=== PATIENT | male | born 1995 | race Caucasian/White ===

== ENCOUNTER 2019-09-03 12:07 | Inpatient (IN) ==
[2019-09-03 13:19] LABS: Basophils # (auto) 0.02 K/uL (0-0.2); Basophils % (auto) 0.4 %; Eosinophils # (auto) 0.14 K/uL (0-0.5); Eosinophils % (auto) 2.6 %; Hematocrit (blood only) 45.6 % (42-52); Hemoglobin 16.1 g/dL (14.0-18.0); Immature Granulocytes # (auto) 0.01 K/uL (0.00-0.02); Immature Granulocytes % (auto) 0.2 %; Lymphocytes # (auto) 1.51 K/uL (1.2-3.4); Lymphocytes % (auto) 27.9 %; Mean Corpuscular Hemoglobin 30.3 pg (25-34); Mean Corpuscular Hgb Conc 35.3 g/dL (32-36); Mean Corpuscular Volume 85.9 fL (80-100); Monocytes # (auto) 0.47 K/uL (0.11-0.59); Monocytes % (auto) 8.7 %; Neutrophils # (auto) 3.26 K/uL (1.4-6.5); Neutrophils % (auto) 60.2 %; Platelet Count 235 K/uL (130-400); RDW Coefficient of Variation 12.6 % (11.5-14.5); RDW Standard Deviation 39.9 fL (36.4-46.3); Red Blood Count 5.31 M/uL (4.7-6.1); White Blood Count 5.41 K/uL (4.8-10.8)
[2019-09-03 13:36] LABS: Albumin Level 4.4 gm/dl (3.4-5.0); BUN Creatinine Ratio 16.1 (10-20); Calcium 9.5 mg/dl (8.5-10.1); Creatinine Clr Calc Pharmacy 125.9 ml/min; Est GFR (African American) 117.6; Est GFR (Non-African American) 101.4; Potassium 3.8 mmol/L (3.5-5.1)
[2019-09-03 13:46] LABS: Acetaminophen < 2 ug/ml (10-30)
[2019-09-03 13:47] LABS: Albumin Globulin Ratio 1.3 (0.9-2); Bilirubin,Total 1.4 mg/dl (0.2-1); Globulin 3.5 gm/dl (2.5-4.0); Salicylate < 1.7 mg/dl (2.8-20); Thyroid Stimulating Hormone 2.22 uIu/ml (0.300-4.500); Total Protein 7.9 gm/dl (6.4-8.2)
[2019-09-03 15:05] LABS: Appearance Urine Clear (Clear); Bilirubin Urine Negative (Negative); Blood Urine Negative (Negative); Color Urine Yellow; Glucose Urine UA Negative (Negative); Ketones Urine Negative (Negative); Leukocyte Esterase Urine Negative (Negative); Nitrite Urine Negative (Negative); Protein Urine Negative (Negative); Specific Gravity Urine 1.014 (1.000-1.030); Urobilinogen Urine Negative (Negative); pH Urine 8.5 (4.5-7.5)
[2019-09-03 15:55] LABS: Amphetamines+Metham, Urine Neg (Neg); Barbiturates, Urine Neg (Neg); Benzodiazepine, Urine Neg (Neg); Cocaine, Urine Neg (Neg); MDMA (Ecstacy), Urine Neg (Neg); Methadone, Urine Neg (Neg); Opiate, Urine Neg (Neg); Phencyclidine, Urine Neg (Neg)
--- NOTE | 2019-09-03 17:20 | Emergency Department Note ---
Entered by Sheri Gan acting as a scribe for Kin Cobb MD History of Present Illness General Chief complaint: Mental Health Evaluation Stated complaint: MENTAL HEALTH EVAL Time Seen by Provider: 09/03/19 12:34 Source: patient History of Present Illness Provider complaint: mental health evaluation Onset (ago): hour(s) (PLEATER ) Location: head Severity: similar to prior episodes Maximum Pain Intensity: 0 Relieved By: + none Exacerbated By: + none Associated symptoms: no shortness of breath The patient is a 24 year old male w/ PMHx depressive disorder who presents to the ED w/ CC of mental health evaluation beginning prior to arrival. The patient reports that he has been having suicidal thoughts for the past 6 months. He states that nothing started them. The patient reports that he went to his bathroom today with his propane grill and shut the door. He notes that he called EMS himself. He notes that he has a history of depressive disorder and sees a therapist locally and at home. He notes that he takes his medications regularly. He denies any issues sleeping or with his appetite. He denies any recent tobacco or alcohol use. The patient reports that he smokes marijuana and last smoke on Sunday. He denies any shortness of breath. The patient reports that he changed his medication today. Home Medications Home Medications Medication Instructions Recorded Confirmed Type Adderall XR 20 mg PO QAM 09/03/19 09/03/19 History Prozac 60 mg PO DAILY 09/03/19 09/03/19 History Ritalin LA 20 mg PO DAILY 09/03/19 09/03/19 History hydrochlorothiazide 25 mg PO DAILY 09/03/19 09/03/19 History lamotrigine 100 mg PO DAILY 09/03/19 09/03/19 History metoprolol tartrate 25 mg PO DAILY 09/03/19 09/03/19 History Allergies Allergy/AdvReac Type Severity Reaction Status Date / Time No Known Allergies Allergy Verified 09/03/19 13:35 Past Med/Surg History Medical History Depressive disorder Social History Preferred Language: Kinyarwanda Feels Safe at Home: Yes Smoking Status: Never smoker Review of Systems See HPI for pertinent positives & negatives. and A total of 10 systems reviewed and were otherwise negative Physical Exam Vital Signs Vital Signs - 24 hr 09/03/19 12:15 09/03/19 14:05 09/03/19 16:00 Temperature 36.9 C Temperature Source Oral Pulse Rate 86 Pulse Rate [Right Finger] 75 76 Pulse Rhythm [Right Finger] Regular Pulse Strength [Right Finger] Normal Respiratory Rate 18 18 20 Respiratory Effort / Characteristics Non-Labored Non-Labored Spontaneous Non-Labored Spontaneous Respiratory Depth Normal Normal Normal Respiratory Pattern Regular Regular Blood Pressure 158/97 H Blood Pressure [Left Arm] 144/86 H 133/82 Blood Pressure Mean 117 Blood Pressure Mean [Left Arm] 105 99 Blood Pressure Position Sitting Blood Pressure Position [Left Arm] Sitting Pulse Oximetry 97 99 100 Oxygen Delivery Method Room Air Room Air Room Air Sepsis Recent Fever Within 48 Hours No Sepsis New/Unexplained Change in Mental Status No Sepsis Action Taken by Nursing No Action Required 09/03/19 19:01 Temperature Temperature Source Pulse Rate Pulse Rate [Right Finger] 77 Pulse Rhythm [Right Finger] Pulse Strength [Right Finger] Respiratory Rate 20 Respiratory Effort / Characteristics Respiratory Depth Normal Respiratory Pattern Blood Pressure Blood Pressure [Left Arm] 151/92 H Blood Pressure Mean Blood Pressure Mean [Left Arm] 111 Blood Pressure Position Blood Pressure Position [Left Arm] Pulse Oximetry 99 Oxygen Delivery Method Room Air Sepsis Recent Fever Within 48 Hours Sepsis New/Unexplained Change in Mental Status Sepsis Action Taken by Nursing GENERAL: Well appearing, well nourished, NAD, non-toxic. EYE EXAM: Normal conjunctiva. PERRL, no anisocoria and EOM's grossly intact w/o pain. OROPHARYNX: Moist mucous membranes. Grossly normal dentition. NECK: Supple, no nuchal rigidity, no adenopathy, non-tender. No signs of meningismus. LUNGS: Clear to auscultation. Normal chest wall mechanics. HEART: NSR, no MRG. ABDOMEN: Abdomen soft, non-tender, normo-active bowel sounds, no masses, no rebound or guarding. BACK: No CVA TTP. SKIN: No rashes and no bruising. UPPER EXTREMITIES: Upper extremities are grossly normal. LOWER EXTREMITIES: No pitting edema. No calf pain. NEURO EXAM: A&O x3, cranial nerves II-XII grossly intact, normal speech, moves all 4 extremities on command w/o issue. PSYCH: Positive SI with attempt, flat affect, negative for HI or AVH Course Course 1253: The patient was evaluated in room A7, and a complete history and physical examination were performed. 1408: Pending urine, but the patient is medically clear. The carboxylate hemoglobin is 0. 1708: The patient will be further evaluated in [address]. Medical Decision Making Medical Records Attestation: I reviewed the patient's medical records. Home Medications Current Medication List: was personally reviewed by me Laboratory Data Attestation: I reviewed the patient's lab results. Result diagrams: 09/03/19 12:59 09/03/19 12:59 Lab Results 09/03/19 09/03/19 09/03/19 Range/Units 12:59 12:59 12:59 WBC 5.41 (4.8-10.8) K/uL RBC 5.31 (4.7-6.1) M/uL Hgb 16.1 (14.0-18.0) g/dL Hct 45.6 (42-52) % MCV 85.9 (80-100) fL MCH 30.3 (25-34) pg MCHC 35.3 (32-36) g/dL RDW Std Deviation 39.9 (36.4-46.3) fL RDW Coeff of She 12.6 (11.5-14.5) % Plt Count 235 (130-400) K/uL MPV 10.0 (7.4-10.4) fL Immature Gran % (Auto) 0.2 % Neut % (Auto) 60.2 % Lymph % (Auto) 27.9 % Hayes % (Auto) 8.7 % Eos % (Auto) 2.6 % Baso % (Auto) 0.4 % Immature Gran # (Auto) 0.01 (0.00-0.02) K/uL Neut # (Auto) 3.26 (1.4-6.5) K/uL Lymph # (Auto) 1.51 (1.2-3.4) K/uL Hayes # (Auto) 0.47 (0.11-0.59) K/uL Eos # (Auto) 0.14 (0-0.5) K/uL Baso # (Auto) 0.02 (0-0.2) K/uL Carboxyhemoglobin 0.0 % THgb Sodium 136 (136-145) mmol/L Potassium 3.8 (3.5-5.1) mmol/L Chloride 100 (98-107) mmol/L Carbon Dioxide 31 (21-32) mmol/L Anion Gap 5.0 (3-11) BUN 17 (7-18) mg/dl Creatinine 1.04 (0.6-1.4) mg/dl Est Cr Clr Drug Dosing 125.9 ml/min Est GFR ( Amer) 117.6 Est GFR (Non-Af Amer) 101.4 BUN/Creatinine Ratio 16.1 (10-20) Glucose 96 (70-99) mg/dl Calcium 9.5 (8.5-10.1) mg/dl Total Bilirubin 1.4 H (0.2-1) mg/dl AST 18 (15-37) U/L ALT 22 (12-78) U/L Alkaline Phosphatase 93 (45-117) U/L Total Protein 7.9 (6.4-8.2) gm/dl Albumin 4.4 (3.4-5.0) gm/dl Globulin 3.5 (2.5-4.0) gm/dl Albumin/Globulin Ratio 1.3 (0.9-2) TSH 2.220 (0.300-4.500) uIu/ml Urine Color Urine Appearance (Clear) Urine pH (4.5-7.5) Ur Specific Mos[place] (1.000-1.030) Urine Protein (Negative) Urine Glucose (UA) (Negative) Urine Ketones (Negative) Urine Blood (Negative) Urine Nitrite (Negative) Urine Bilirubin (Negative) Urine Urobilinogen (Negative) Ur Leukocyte Esterase (Negative) Salicylates (2.8-20) mg/dl Urine Opiates Screen (Neg) Ur Methadone, Qual (Neg) Acetaminophen (10-30) ug/ml Urine Barbiturates (Neg) Ur Phencyclidine (PCP) (Neg) U Amphetamin/Meth Scrn (Neg) MDMA (Ecstasy) Screen (Neg) U Benzodiazepines Scrn (Neg) Ur Cocaine Metabolite (Neg) U Marijuana (THC) Screen (Neg) Ethyl Alcohol mg/dL (0-3) mg/dl 09/03/19 09/03/19 09/03/19 Range/Units 12:59 12:59 14:50 WBC (4.8-10.8) K/uL RBC (4.7-6.1) M/uL Hgb (14.0-18.0) g/dL Hct (42-52) % MCV (80-100) fL MCH (25-34) pg MCHC (32-36) g/dL RDW Std Deviation (36.4-46.3) fL RDW Coeff of She (11.5-14.5) % Plt Count (130-400) K/uL MPV (7.4-10.4) fL Immature Gran % (Auto) % Neut % (Auto) % Lymph % (Auto) % Hayes % (Auto) % Eos % (Auto) % Baso % (Auto) % Immature Gran # (Auto) (0.00-0.02) K/uL Neut # (Auto) (1.4-6.5) K/uL Lymph # (Auto) (1.2-3.4) K/uL Hayes # (Auto) (0.11-0.59) K/uL Eos # (Auto) (0-0.5) K/uL Baso # (Auto) (0-0.2) K/uL Carboxyhemoglobin % THgb Sodium (136-145) mmol/L Potassium (3.5-5.1) mmol/L Chloride (98-107) mmol/L Carbon Dioxide (21-32) mmol/L Anion Gap (3-11) BUN (7-18) mg/dl Creatinine (0.6-1.4) mg/dl Est Cr Clr Drug Dosing ml/min Est GFR ( Amer) Est GFR (Non-Af Amer) BUN/Creatinine Ratio (10-20) Glucose (70-99) mg/dl Calcium (8.5-10.1) mg/dl Total Bilirubin (0.2-1) mg/dl AST (15-37) U/L ALT (12-78) U/L Alkaline Phosphatase (45-117) U/L Total Protein (6.4-8.2) gm/dl Albumin (3.4-5.0) gm/dl Globulin (2.5-4.0) gm/dl Albumin/Globulin Ratio (0.9-2) TSH (0.300-4.500) uIu/ml Urine Color Urine Appearance (Clear) Urine pH (4.5-7.5) Ur Specific [place] (1.000-1.030) Urine Protein (Negative) Urine Glucose (UA) (Negative) Urine Ketones (Negative) Urine Blood (Negative) Urine Nitrite (Negative) Urine Bilirubin (Negative) Urine Urobilinogen (Negative) Ur Leukocyte Esterase (Negative) Salicylates < 1.7 L (2.8-20) mg/dl Urine Opiates Screen Neg (Neg) Ur Methadone, Qual Neg (Neg) Acetaminophen < 2 L (10-30) ug/ml Urine Barbiturates Neg (Neg) Ur Phencyclidine (PCP) Neg (Neg) U Amphetamin/Meth Scrn Neg (Neg) MDMA (Ecstasy) Screen Neg (Neg) U Benzodiazepines Scrn Neg (Neg) Ur Cocaine Metabolite Neg (Neg) U Marijuana (THC) Screen Neg (Neg) Ethyl Alcohol mg/dL < 3.0 (0-3) mg/dl 09/03/19 Range/Units 14:50 WBC (4.8-10.8) K/uL RBC (4.7-6.1) M/uL Hgb (14.0-18.0) g/dL Hct (42-52) % MCV (80-100) fL MCH (25-34) pg MCHC (32-36) g/dL RDW Std Deviation (36.4-46.3) fL RDW Coeff of She (11.5-14.5) % Plt Count (130-400) K/uL MPV (7.4-10.4) fL Immature Gran % (Auto) % Neut % (Auto) % Lymph % (Auto) % Hayes % (Auto) % Eos % (Auto) % Baso % (Auto) % Immature Gran # (Auto) (0.00-0.02) K/uL Neut # (Auto) (1.4-6.5) K/uL Lymph # (Auto) (1.2-3.4) K/uL Hayes # (Auto) (0.11-0.59) K/uL Eos # (Auto) (0-0.5) K/uL Baso # (Auto) (0-0.2) K/uL Carboxyhemoglobin % THgb Sodium (136-145) mmol/L Potassium (3.5-5.1) mmol/L Chloride (98-107) mmol/L Carbon Dioxide (21-32) mmol/L Anion Gap (3-11) BUN (7-18) mg/dl Creatinine (0.6-1.4) mg/dl Est Cr Clr Drug Dosing ml/min Est GFR ( Amer) Est GFR (Non-Af Amer) BUN/Creatinine Ratio (10-20) Glucose (70-99) mg/dl Calcium (8.5-10.1) mg/dl Total Bilirubin (0.2-1) mg/dl AST (15-37) U/L ALT (12-78) U/L Alkaline Phosphatase (45-117) U/L Total Protein (6.4-8.2) gm/dl Albumin (3.4-5.0) gm/dl Globulin (2.5-4.0) gm/dl Albumin/Globulin Ratio (0.9-2) TSH (0.300-4.500) uIu/ml Urine Color Yellow Urine Appearance Clear (Clear) Urine pH 8.5 H (4.5-7.5) Ur Specific Mos[place] 1.014 (1.000-1.030) Urine Protein Negative (Negative) Urine Glucose (UA) Negative (Negative) Urine Ketones Negative (Negative) Urine Blood Negative (Negative) Urine Nitrite Negative (Negative) Urine Bilirubin Negative (Negative) Urine Urobilinogen Negative (Negative) Ur Leukocyte Esterase Negative (Negative) Salicylates (2.8-20) mg/dl Urine Opiates Screen (Neg) Ur Methadone, Qual (Neg) Acetaminophen (10-30) ug/ml Urine Barbiturates (Neg) Ur Phencyclidine (PCP) (Neg) U Amphetamin/Meth Scrn (Neg) MDMA (Ecstasy) Screen (Neg) U Benzodiazepines Scrn (Neg) Ur Cocaine Metabolite (Neg) U Marijuana (THC) Screen (Neg) Ethyl Alcohol mg/dL (0-3) mg/dl Blood Pressure Blood Pressure Findings: Elevated blood pressure MDM Narrative Differential diagnosis: Etiologies such as mood disorder, infection, hypoglycemia, electrolyte abnormalities, cardiac sources, intracerebral event, toxicologic, neurologic, as well as others were entertained. The patient is a 24 year old male w/ PMHx depressive disorder who presents to the ED w/ CC of mental health evaluation beginning prior to arrival. Patient was seen and evaluated the bedside. The patient did present after a car monoxide exposure as the patient did lock himself in the bathroom and turned on a propane grill. The patient states that this no more than 5 minutes. The patient was empirically placed on a nonrebreather. After discussion with the patient the patient currently has no shortness of breath. Carboxyhemoglobin was ordered along with additional medications. The patient has no prior history of suicide attempts. The patient was deemed medically clear he was seen and evaluated the psych case checker and made as a [facility]. The patient was subsequently admitted as a 201 for inpatient psychiatric treatment on [address]. Impression & Plan Suicide attempt, Depressed, Carbon monoxide exposure Discharge Plan Visit Data Chief Complaint: Mental Health Evaluation Stated Complaint: MENTAL HEALTH EVAL ED Provider: Kin Cobb Discharge Problem: Suicide attempt, Depressed, Carbon monoxide exposure Patient Disposition: Admitted As Inpatient Forms Stand Alone Forms: My [facility], Suicide Prevention Resources Prescriptions Prescriptions: No Action Adderall XR capsule 20 mg PO QAM RF: 0 Prozac capsule 60 mg PO DAILY RF: 0 hydrochlorothiazide 25 mg PO DAILY RF: 0 lamotrigine tablet 100 mg PO DAILY RF: 0 metoprolol tartrate 25 mg PO DAILY RF: 0 Ritalin LA 20 mg PO DAILY RF: 0 Referrals Referrals: PCP,NO [Primary Care Provider] - Discharge Problem: Depressed Qualifiers: Depression Type: unspecified Qualified Code(s): F32.9 - Major depressive disorder, single episode, unspecified The scribe's documentation has been prepared under my direction and personally r eviewed by me in its entirety. I confirm that the note above accurately reflects all work, treatment, procedures, and medical decision making performed by me.
[2019-09-03] MEDS ORDERED: MAGNESIUM HYDROXIDE SUSP 30 ML UDC PO PRN (20:53)
[2019-09-03] MEDS ORDERED: ACETAMINOPHEN 325 MG TAB PO PRN (20:53)
[2019-09-03] MEDS ORDERED: BISMUTH SUBSALICYLATE PER ML OMNICELL CHARGE PO PRN (20:53)
[2019-09-03] MEDS ORDERED: SODIUM CHLORIDE 0.65% NA SOLN 45 ML (OCEAN) PRN (20:53)
[2019-09-03] MEDS ORDERED: ALUMINUM/MAGNESIUM SUSP 30 ML UDC PO PRN (20:53)
[2019-09-03] MEDS: lamoTRIgine 100 MG TAB PO SCH (23:26)
[2019-09-04] MEDS: hydroCHLOROthiazide 25 MG TAB PO SCH (08:42)
[2019-09-04] MEDS: METOPROLOL TARTRATE 25 MG TAB PO SCH (08:43)
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
[2019-09-04] MEDS: FLUOXETINE HCL 20 MG CAP PO SCH (12:11)
[2019-09-04] MEDS: lamoTRIgine 100 MG TAB PO SCH (21:51)
--- NOTE | 2019-09-05 09:13 | Psychiatric Progress Note ---
Date of Service September 05, 2019 Impression / Recommendations Impression 24 y/o M with recurrent depression and ADHD who is admitted voluntarily after a suicide attempt. He attributes his worsening mood/suicidal attempt to the increase in fluoxetine from 40 to 60mg, but admits he is not sure this is truly the cause, as also dealing with school stress recently. He would like to return to 40 mg of fluoxetine for now. Family meeting with parents completed - patient agreeable with more open communication, but continuing to work on how to apply this to his routine. Pt is planning to return home to [place] on discharge. Pt is agreeable with consistent therapy back home, but will require aftercare be arranged. He will be asked to complete a safety plan prior to discharge as well. Pt also believes prior medication adjustments played a large role in his worsening depression and increased SI, and he would therefore benefit from continued monitoring in a safe environment to ensure stability of mood prior to discharge. Inpatient treatment is medically necessary due to the severity of his symptoms and risk for suicide if discharged without necessary outpatient supports. (1) Suicide attempt: 09/04 -continue voluntary hospitalization with every 15 minute checks for safety -Encourage group attendance and participation, work on healthy coping skills and discharge safety plan. 09/05 - Pt denies SI today - Will still need to complete a safety plan prior to discharge (2) Depressed: 2 - Get records from [facility] to clarify previous diagnoses and medications/response to treatment. - Discussed his diagnosis and treatment: Role of medications and therapy, good self-care (nutritious diet, adequate sleep, regular exercise, engaging in activities he enjoys), and recommendations to abstain from alcohol and recreational drugs due to risk of worsening mood or interfering with medications. - Continue lamotrigine; likely too early to tell if it has been beneficial for mood. Discussed antidepressant options, including returning to the lower dose of fluoxetine or switching to an SNRI as had tried 2 SSRIs. He opted to return to fluoxetine 40 mg daily. - Patient does not want to take Concerta anymore - will d/c. Advised that he will need to discuss ongoing use of stimulants with his outpatient clinician, as they are nonformulary here. - Family meeting with parents today. - He would benefit from regular outpatient therapy. 09/05 - Continue current medication regimen - Family meeting with parents held yesterday - pt planning to return to [place] on discharge - Pt still requires outpatient providers in the [place] area (3) Hypertension: Continue home doses of hydrochlorothiazide and metoprolol. 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 Chief Complaint "Definitely better, I'd say." Review of Systems Notes Constitutional: denied Cardiovascular: denied Respiratory: denied Gastrointestinal: denied Neurological: denied Psychiatric: denies symptoms other than stated above Total of at least 10 systems reviewed, pertinent positives as above and in HPI. Sleep Information Total Hours of Sleep: 7.5 Meal Information Percent Meal Consumed - Breakfast: 100 Percent Meal Consumed - Lunch: 100 Percent Meal Consumed - Dinner: 100 Subjective Subjective Patient was seen & assessed and interval progress reviewed with treatment team. Staff report the patient has been cooperative and pleasant on the unit. He has had limited time to engage in group programming due to various admission assessments yesterday. He was able to attend community meeting last evening, where he rated his mood a 5/10 and "contemplative." Pt was seen today to assess progress since admission. Pt provides verbal consent to allow Farhana Lauren PA-C to observe today's encounter. Pt states he is feeling "definitely better" today. He admits "I had just given up, I was still feeling that way yesterday. Today I have more hope." Pt describes a "good" family meeting with parents yesterday, stating they discussed having more open communication. Pt states, "I knew I had support, but I don't think I had internalized that until now. I still need to find a way to be better about asking for help." Pt states his current plan to to return home with his parents on discharge. He admits he still needs to complete a safety plan, and is still interested in having a psychiatric prescriber to continue medication adjustments. Pt continues to believe that recent medication adjustments played a large role in his worsening depression. He denies SI today, and is continuing to process his depression and hopelessness in groups. He is agreeable with estimated length of stay, stating "yeah, I figure I still need a few more days." He denies other needs or concerns at this time. Physical Exam Psychiatric Orientation: alert, oriented x 3 and cooperative (and pleasant) Apperance: appropriately dressed (casually, wearing shorts and hoodie), appropriately groomed and appeared stated age Eye Contact: good eye contact Motor Behavior: steady gait and station and no abnormal motor movements Speech: normal rate/rhythm/volume of speech Affect: + depressed affect (appearing subdued) and mood congruent with affect Mood: + depressed mood ("definitely better" and "a bit more hopeful") Thought Process: goal directed thought process, clear/coherent thought process and thought association intact Thought Content: reality based without delusions; no hopelessness ("a little more hopeful") Suicidal Thoughts: denies suicidal thoughts and denies suicidal intent Homicidal Thoughts: denies homicidal thoughts Hallucinations: no auditory hallucinations and no visual hallucinations Cognition: remote memory grossly intact, attention grossly intact and language grossly intact Insight: + fair insight Judgement: + fair judgement Vital Signs (Past 24 Hours) Last Vital Signs Temp 36.4 C L 09/05/19 06:46 Pulse 80 09/05/19 06:46 Resp 18 09/05/19 06:46 BP 133/80 09/05/19 06:46 Pulse Ox 99 09/03/19 20:19 Results & Data Current Inpatient Medications Current Inpatient Medications: Current Inpatient Medications Acetaminophen (Tylenol) 650 mg PO Q4H PRN PRN Reason: Headache or Minor Fever Stop: 10/03/19 20:52 Al Hydrox/Mg Hydrox/Simethicone (Maalox) 30 ml PO Q4H PRN PRN Reason: GI Upset Stop: 10/03/19 20:52 Bismuth Subsalicylate (Kaopectate) 15 ml PO PRN PRN PRN Reason: Loose Stool Stop: 10/03/19 20:52 Fluoxetine HCl (Prozac) 40 mg PO QAM [facility] Stop: 10/04/19 11:59 Last Admin: 09/04/19 12:11 Dose: 40 mg Documented by: Hydrochlorothiazide (Hctz) 25 mg PO DAILY MELISSA Stop: 10/04/19 08:59 Last Admin: 09/04/19 08:42 Dose: 25 mg Documented by: Hydroxyzine HCl (Vistaril) 50 mg PO HSZ PRN PRN Reason: Insomnia Stop: 10/03/19 20:52 Hydroxyzine HCl (Vistaril) 25 mg PO Q4H PRN PRN Reason: Anxiety Stop: 10/03/19 20:52 Lamotrigine (Lamictal) 100 mg PO HS MELISSA Stop: 10/04/19 21:59 Last Admin: 09/04/19 21:51 Dose: 100 mg Documented by: Magnesium Hydroxide (Milk Of Magnesia) 30 ml PO DAILY PRN PRN Reason: Constipation Stop: 10/03/19 20:52 Metoprolol Tartrate (Lopressor) 25 mg PO DAILY [facility] Stop: 10/04/19 08:59 Last Admin: 09/04/19 08:43 Dose: 25 mg Documented by: Sodium Chloride (Clarke Nasal) 1 - 2 sprays NA PRN PRN PRN Reason: Nasal Dryness/Congestion Stop: 10/03/19 20:52 Mental Health & Subst Abuse Tx Therapist Name of Therapist: Odette Soria [employer] Name of [employer]: none Post Discharge Appointments Primary Care Physician Name Of Family Doctor: [facility] Jared Ivey (Dr. Pineda sp?) (1) Depressed Depression Type: unspecified Qualified Code(s): F32.9 - Major depressive disorder, single episode, unspecified
[2019-09-05] MEDS: hydroCHLOROthiazide 25 MG TAB PO SCH (10:00)
[2019-09-05] MEDS: METOPROLOL TARTRATE 25 MG TAB PO SCH (10:00)
[2019-09-05] MEDS: FLUOXETINE HCL 20 MG CAP PO SCH (10:02)
[2019-09-05] MEDS: lamoTRIgine 100 MG TAB PO SCH (21:22)
[2019-09-06] MEDS: hydroCHLOROthiazide 25 MG TAB PO SCH (08:58)
[2019-09-06] MEDS: METOPROLOL TARTRATE 25 MG TAB PO SCH (08:58)
[2019-09-06] MEDS: FLUOXETINE HCL 20 MG CAP PO SCH (08:58)
--- NOTE | 2019-09-06 15:23 | Psychiatric Progress Note ---
Date of Service September 06, 2019 Impression / Recommendations Impression 24 y/o M with recurrent depression and ADHD who is admitted voluntarily after a suicide attempt. He attributes his worsening mood/suicidal attempt to the increase in fluoxetine from 40 to 60mg, but admits he is not sure this is truly the cause, as also dealing with school stress recently. He would like to return to 40 mg of fluoxetine for now. Family meeting with parents completed - patient agreeable with more open communication, but continuing to work on how to apply this to his routine. Pt is planning to return home to [place] on discharge. Pt is agreeable with consistent therapy back home, but will require aftercare be arranged. He will be asked to complete a safety plan prior to discharge as well. Pt also believes prior medication adjustments played a large role in his worsening depression and increased SI, and he would therefore benefit from continued monitoring in a safe environment to ensure stability of mood prior to discharge. Inpatient treatment is medically necessary due to the severity of his symptoms and risk for suicide if discharged without necessary outpatient supports. (1) Suicide attempt: 09/04 -continue voluntary hospitalization with every 15 minute checks for safety -Encourage group attendance and participation, work on healthy coping skills and discharge safety plan. 09/05 - Pt denies SI today - Will still need to complete a safety plan prior to discharge 09/06 -Denies suicidal ideation again today however he does acknowledge that suicidal ideation has been intermittent and mood stability has been fluctuant and a period of monitoring is certainly prudent due to risk of harm if discharged prematurely (2) Depressed: 2 - Get records from [facility] to clarify previous diagnoses and medications/response to treatment. - Discussed his diagnosis and treatment: Role of medications and therapy, good self-care (nutritious diet, adequate sleep, regular exercise, engaging in activities he enjoys), and recommendations to abstain from alcohol and recreational drugs due to risk of worsening mood or interfering with medications. - Continue lamotrigine; likely too early to tell if it has been beneficial for mood. Discussed antidepressant options, including returning to the lower dose of fluoxetine or switching to an SNRI as had tried 2 SSRIs. He opted to return to fluoxetine 40 mg daily. - Patient does not want to take Concerta anymore - will d/c. Advised that he will need to discuss ongoing use of stimulants with his outpatient clinician, as they are nonformulary here. - Family meeting with parents today. - He would benefit from regular outpatient therapy. 09/05 - Continue current medication regimen - Family meeting with parents held yesterday - pt planning to return to [place] on discharge - Pt still requires outpatient providers in the [place] area 09/06 -We will continue the Prozac and Lamictal as scheduled. Potential future treatment interventions reviewed with patient as above (3) Hypertension: Continue home doses of hydrochlorothiazide and metoprolol. 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 Chief Complaint " I think it was the medication adjustment". Review of Systems Sleep Information Total Hours of Sleep: 7.25 Meal Information Percent Meal Consumed - Breakfast: 25 Percent Meal Consumed - Lunch: 100 Percent Meal Consumed - Dinner: 90 Subjective Subjective Patient was seen & assessed and interval progress reviewed with treatment team. Per staff, patient has been participating in unit programming. He did sign a 72-hour notice which will be due on the at 17:30. He remains on stable dose of Lamictal and the reduced dose of Prozac. He reports improvement in mood and resolution of suicidal ideation since admission and expresses apprehension about considering alternative antidepressant or further titration of Lamictal perceiving recent medication adjustments have precipitated increased mood instability resulting in admission. Reports taking the Adderall for only a few weeks before conversion to Concerta so unlikely withdrawal however we discussed possibility that the stimulant was problematically activating him while still depressed. He is in agreement to continue holding the stimulant. Reviewed history of mood fluctuations from week to week either depressive or fairly euthymic but never manic. He is uncertain of the benefits from the Lamictal so far however he is only been on this for about a month. He was advised that he might benefit from some further titration. We also discussed risks and benefits and considering SNRI as alternative however he strongly preferred to maintain on his current medications and monitor for a time before further changes were made. "I just want some stability." Physical Exam Psychiatric Orientation: alert and cooperative Apperance: appropriately dressed and appropriately groomed Eye Contact: good eye contact Motor Behavior: steady gait and station Speech: normal rate/rhythm/volume of speech Affect: + blunted affect Mood: + depressed mood Thought Process: goal directed thought process and linear/logical thought process Thought Content: reality based without delusions Suicidal Thoughts: denies suicidal thoughts and denies suicidal intent Cognition: recent memory grossly intact and attention grossly intact Estimated Intelligence: average estimated intelligence Judgement: + fair judgement Vital Signs (Past 24 Hours) Last Vital Signs Temp 36.7 C 09/06/19 07:06 Pulse 70 09/06/19 07:07 Resp 16 09/06/19 07:06 BP 117/77 09/06/19 07:07 Pulse Ox 99 09/03/19 20:19 Results & Data Current Inpatient Medications Current Inpatient Medications: Current Inpatient Medications Acetaminophen (Tylenol) 650 mg PO Q4H PRN PRN Reason: Headache or Minor Fever Stop: 10/03/19 20:52 Al Hydrox/Mg Hydrox/Simethicone (Maalox) 30 ml PO Q4H PRN PRN Reason: GI Upset Stop: 10/03/19 20:52 Bismuth Subsalicylate (Kaopectate) 15 ml PO PRN PRN PRN Reason: Loose Stool Stop: 10/03/19 20:52 Fluoxetine HCl (Prozac) 40 mg PO QAM MELISSA Stop: 10/04/19 11:59 Last Admin: 09/06/19 08:58 Dose: 40 mg Documented by: Hydrochlorothiazide (Hctz) 25 mg PO DAILY MELISSA Stop: 10/04/19 08:59 Last Admin: 09/06/19 08:58 Dose: 25 mg Documented by: Hydroxyzine HCl (Vistaril) 50 mg PO HSZ PRN PRN Reason: Insomnia Stop: 10/03/19 20:52 Hydroxyzine HCl (Vistaril) 25 mg PO Q4H PRN PRN Reason: Anxiety Stop: 10/03/19 20:52 Lamotrigine (Lamictal) 100 mg PO HS MELISSA Stop: 10/04/19 21:59 Last Admin: 09/05/19 21:22 Dose: 100 mg Documented by: Magnesium Hydroxide (Milk Of Magnesia) 30 ml PO DAILY PRN PRN Reason: Constipation Stop: 10/03/19 20:52 Metoprolol Tartrate (Lopressor) 25 mg PO DAILY MELISSA Stop: 10/04/19 08:59 Last Admin: 09/06/19 08:58 Dose: 25 mg Documented by: Sodium Chloride (Henning Nasal) 1 - 2 sprays NA PRN PRN PRN Reason: Nasal Dryness/Congestion Stop: 10/03/19 20:52 Mental Health & Subst Abuse Tx Therapist Name of Therapist: [facility] Isabela Pino Therapist's Therapy Appointment Comment: [address], [address], [place] [address] Clinical Laboratory Scientist Name of Clinical Laboratory Scientist: none Post Discharge Appointments Primary Care Physician Name Of Family Doctor: [facility] Primary Care Provider Appointment Comment: [address], [address], [place] [address] Contact Information Discharge (1) Depressed Depression Type: unspecified Qualified Code(s): F32.9 - Major depressive disorder, single episode, unspecified
[2019-09-06] MEDS: lamoTRIgine 100 MG TAB PO SCH (21:21)
[2019-09-07] MEDS: FLUOXETINE HCL 20 MG CAP PO SCH (08:54)
[2019-09-07] MEDS: hydroCHLOROthiazide 25 MG TAB PO SCH (08:54)
[2019-09-07] MEDS: METOPROLOL TARTRATE 25 MG TAB PO SCH (08:54)
--- NOTE | 2019-09-07 11:41 | Psychiatric Progress Note ---
Date of Service September 07, 2019 Impression / Recommendations Impression 24 y/o M with recurrent depression and ADHD who is admitted voluntarily after a suicide attempt. He attributes his worsening mood/suicidal attempt to the increase in fluoxetine from 40 to 60mg, but admits he is not sure this is truly the cause, as also dealing with school stress recently. He would like to return to 40 mg of fluoxetine for now. Family meeting with parents completed - patient agreeable with more open communication, but continuing to work on how to apply this to his routine. Pt is planning to return home to [place] on discharge. Pt is agreeable with consistent therapy back home, but will require aftercare be arranged. He will be asked to complete a safety plan prior to discharge as well. Pt also believes prior medication adjustments played a large role in his worsening depression and increased SI, and he would therefore benefit from continued monitoring in a safe environment to ensure stability of mood prior to discharge. Inpatient treatment is medically necessary due to the severity of his symptoms and risk for suicide if discharged without necessary outpatient supports. (1) Suicide attempt: 09/04 -continue voluntary hospitalization with every 15 minute checks for safety -Encourage group attendance and participation, work on healthy coping skills and discharge safety plan. 09/05 - Pt denies SI today - Will still need to complete a safety plan prior to discharge 09/06 -Denies suicidal ideation again today however he does acknowledge that suicidal ideation has been intermittent and mood stability has been fluctuant and a period of monitoring is certainly prudent due to risk of harm if discharged prematurely 09/07 -Patient continues to deny recurrence of suicidal ideation. His 72-hour notice will be up on Sunday afternoon at 5:30 PM. At this time it appears likely that he will be discharged at that time. Discharge planning in process (2) Depressed: 09/04 - Get records from [facility] to clarify previous diagnoses and medications/response to treatment. - Discussed his diagnosis and treatment: Role of medications and therapy, good self-care (nutritious diet, adequate sleep, regular exercise, engaging in activities he enjoys), and recommendations to abstain from alcohol and recreational drugs due to risk of worsening mood or interfering with medication s. - Continue lamotrigine; likely too early to tell if it has been beneficial for mood. Discussed antidepressant options, including returning to the lower dose of fluoxetine or switching to an SNRI as had tried 2 SSRIs. He opted to return to fluoxetine 40 mg daily. - Patient does not want to take Concerta anymore - will d/c. Advised that he will need to discuss ongoing use of stimulants with his outpatient clinician, as they are nonformulary here. - Family meeting with parents today. - He would benefit from regular outpatient therapy. 09/05 - Continue current medication regimen - Family meeting with parents held yesterday - pt planning to return to [place] on discharge - Pt still requires outpatient providers in the [place] area 09/06 -We will continue the Prozac and Lamictal as scheduled. Potential future treatment interventions reviewed with patient as above (3) Hypertension: Continue home doses of hydrochlorothiazide and metoprolol. 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 Chief Complaint " I feel more like myself". Review of Systems Sleep Information Total Hours of Sleep: 7.5 Meal Information Percent Meal Consumed - Breakfast: 100 Percent Meal Consumed - Lunch: 75 Percent Meal Consumed - Dinner: 100 Nutrition Comment: per meal record Subjective Subjective Patient was seen & assessed and interval progress reviewed with treatment team. Patient had a good visit with his family yesterday. Family has indicated plan to bring him home to [facility] and he will be staying with them immediately post discharge. Social work is still in the process of facilitating psychiatry referral. He does have a PCP and therapist already set up in the area. His 72-hour notice will be up on Sunday afternoon at 5:30 PM. At this point he expresses desire to be discharged at that time and indicates a "100% confidence" that he will not try to hurt himself again as long as he is staying with his family. He states he has a "98% confidence" that he would be fine to stay with himself but agrees that the support of his family is important to his wellbeing and he seems to accept that the best place for him to be is with him at present. He accepts need for continued outpatient treatment. Today he denies any recurrence of suicidal ideation or impulses. He has been compliant with prescribed psychotropics. Physical Exam Psychiatric Orientation: alert, oriented x 3 and cooperative Apperance: appropriately dressed and appropriately groomed Eye Contact: good eye contact Motor Behavior: steady gait and station Speech: normal rate/rhythm/volume of speech Affect: + blunted affect (calm) "ok" Thought Process: goal directed thought process and clear/coherent thought process Thought Content: reality based without delusions Suicidal Thoughts: denies suicidal thoughts, denies suicidal plan and denies s uicidal intent Homicidal Thoughts: denies homicidal thoughts Hallucinations: no auditory hallucinations, no visual hallucinations and no tactile hallucinations Cognition: recent memory grossly intact and attention grossly intact Estimated Intelligence: average estimated intelligence Insight: + fair insight Judgement: + fair judgement Vital Signs (Past 24 Hours) Last Vital Signs Temp 37 C 09/07/19 06:52 Pulse 72 09/07/19 08:48 Resp 16 09/07/19 06:52 BP 138/67 09/07/19 08:48 Pulse Ox 99 09/03/19 20:19 Results & Data Current Inpatient Medications Current Inpatient Medications: Current Inpatient Medications Acetaminophen (Tylenol) 650 mg PO Q4H PRN PRN Reason: Headache or Minor Fever Stop: 10/03/19 20:52 Al Hydrox/Mg Hydrox/Simethicone (Maalox) 30 ml PO Q4H PRN PRN Reason: GI Upset Stop: 10/03/19 20:52 Bismuth Subsalicylate (Kaopectate) 15 ml PO PRN PRN PRN Reason: Loose Stool Stop: 10/03/19 20:52 Fluoxetine HCl (Prozac) 40 mg PO QAM [facility] Stop: 10/04/19 11:59 Last Admin: 09/07/19 08:54 Dose: 40 mg Documented by: Hydrochlorothiazide (Hctz) 25 mg PO DAILY [facility] Stop: 10/04/19 08:59 Last Admin: 09/07/19 08:54 Dose: 25 mg Documented by: Hydroxyzine HCl (Vistaril) 50 mg PO HSZ PRN PRN Reason: Insomnia Stop: 10/03/19 20:52 Hydroxyzine HCl (Vistaril) 25 mg PO Q4H PRN PRN Reason: Anxiety Stop: 10/03/19 20:52 Lamotrigine (Lamictal) 100 mg PO HS MELISSA Stop: 10/04/19 21:59 Last Admin: 09/06/19 21:21 Dose: 100 mg Documented by: Magnesium Hydroxide (Milk Of Magnesia) 30 ml PO DAILY PRN PRN Reason: Constipation Stop: 10/03/19 20:52 Metoprolol Tartrate (Lopressor) 25 mg PO DAILY MELISSA Stop: 10/04/19 08:59 Last Admin: 09/07/19 08:54 Dose: 25 mg Documented by: Sodium Chloride ([place] Nasal) 1 - 2 sprays NA PRN PRN PRN Reason: Nasal Dryness/Congestion Stop: 10/03/19 20:52 Mental Health & Subst Abuse Tx Therapist Name of Therapist: [facility] Isabela Pino Therapist's Therapy Appointment Comment: [address], [address], [place] [address] Die Barber Name of Die Barber: none Post Discharge Appointments Primary Care Physician Name Of Family Doctor: [facility] Primary Care Provider Appointment Comment: [address], [address], [place] [address] Contact Information Discharge (1) Depressed Depression Type: unspecified Qualified Code(s): F32.9 - Major depressive disorder, single episode, unspecified
[2019-09-07] MEDS: lamoTRIgine 100 MG TAB PO SCH (21:21)
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
[2019-09-08] MEDS: hydroCHLOROthiazide 25 MG TAB PO SCH (09:08)
[2019-09-08] MEDS: METOPROLOL TARTRATE 25 MG TAB PO SCH (09:08)
[2019-09-08] MEDS: FLUOXETINE HCL 20 MG CAP PO SCH (09:08)
[2019-09-08] MEDS ORDERED: [UNRECOGNIZED DRUG - REMARK] SCH (10:45)
== END 2019-09-08 12:15 | disposition home or self-care (01) | DRG 885 ==
LOC: ED 12:07 → 3S 20:01